=== PATIENT | female | born 1985 | race Caucasian/White ===

== ENCOUNTER → 2017-10-12 09:34 | Outpatient (REF) | payer OTHER, SELFPAY | LOC: LAB 09:34 | PROVIDERS: Visit Provider Nurse Practitioner Obstetrics & Gynecology | DX: Z34.90 Encounter for supervision of normal pregnancy, unspecified, unspecified trimester (principal) | CPT/HCPCS: 86403 ==

== ENCOUNTER 2017-11-07 17:06 | Inpatient (IN) | payer OTHER, SELFPAY ==
[2017-11-07 17:41] VITALS: BP 125/80; PULSE 100; RESP 18; TEMP 36.7; O2SAT 99; BMI 26.1
[2017-11-07 18:34] LABS: Basophils % 0.3 % (0.1-2.0); Eosinophils # 0.2 K/mm3 (0.0-0.4); Eosinophils % 1.4 % (0.1-12.0); Hematocrit 34.5 % (37.0-47.0); Lymphocytes # 2.3 K/mm3 (0.7-4.5); Mean Corpuscular HGB Conc 34.7 g/dL (31.8-35.4); Mean Corpuscular Hemoglobin 32.6 pg (27.0-31.2); Mean Platelet Volume 9.9 fl (7.4-10.4); Monocytes # 0.6 K/mm3 (0.1-1.0); Monocytes % 4.8 % (1.7-9.3); Neutrophils # 8.9 K/mm3 (1.8-7.8); Neutrophils % 74.5 % (37.0-80.0); Platelet Count 239 K/mm3 (142-424); Red Blood Count 3.67 M/mm3 (4.20-5.40); Red Cell Distribution Width 13.4 % (11.5-17.5); White Blood Count 11.9 K/mm3 (4.8-10.8)
[2017-11-08] VITALS (7 sets, daily range): BP systolic 112–121; BP diastolic 72–84; PULSE 59–100; RESP 12–18; TEMP 36.6–37.6; O2SAT 97–100
--- NOTE | 2017-11-08 08:01 | HMH.LABNOT ---
Labor Note - Subjective: Date: 11/08/17 Time: 08:02 regular contraction - Objective: NST:: Reactive Contractions:: every 2-3 minutes Cervical Dilation:: 1 Effacement:: 50% Station: -3 Membranes: intact - Fetus: Monitoring?: Yes monitoring type:: External - Assessment: Labor progressing?: No Patient Problems: All Active Problems (Acute) - Plan: Anesthesia for epidural?: No Continue to labor down?: Yes Plan for ?: No Continue to monitor?: Yes Start pushing?: No Comment:: She is having regular contractions however her cervix is still closed and station -3. The cervix is approximately 50% effaced.
--- NOTE | 2017-11-08 08:03 | HMH.OBAPHP ---
OB - H&P: HPI Antepartum - History of Present Illness Chief complaint: She is term. - History of Present Criteria for establishing EDC:: LMP confirmed by 1st trimester US care: good care Ultrasounds: normal 1st trimester US, normal mid trimester US Obstetrical complications: none Medical complications: none [facility] History Medical History: Denies:: Cancer, Diabetes Mellitus Type 1, Diabetes Mellitus Type 2, MRSA Other Surgeries: Yes: Appendectomy, Other (wisdom teeth) Amputation: No Fractures: No - *Social History Smoking Status: Never smoker Alcohol Intake: never Substance Use Type: denies use Occupational Status: employed Household Members: spouse - Psychiatric History Expresses thoughts of harming self/others: None Suicide Plan Description: No Plan *Family Hx:: No significant family history Para: 0 Meds Home Medications Medication Instructions Recorded Confirmed Type lactobacillus combination no.8 3 3,000 mmu cells PO QDAY cap 10/05/17 11/07/17 History billion cell capsule 1 tab PO QDAY 10/05/17 11/07/17 History vitamin,calcium,myxocmlg-yizw-iyoqe acid tablet ferrous sulfate 325 mg (65 mg 325 mg PO DAILY tab 10/21/17 11/07/17 History iron) tablet Allergies Allergy/AdvReac Type Severity Reaction Status Date / Time No Known Allergies Allergy Verified 10/12/17 13:52 OB - H&P: Exam - Physical Exam Vital signs: Temp Pulse Resp BP Pulse Ox 98.1 F 100 H 18 125/80 99 11/07/17 17:41 11/07/17 17:41 11/07/17 17:41 11/07/17 17:41 11/07/17 17:41 - Constitutional no acute distress, average body habitus OB - Results - Labs Labs: Short CBC 11/07/17 Range/Units 18:25 WBC 11.9 H (4.8-10.8) K/mm3 Hgb 12.0 L (12.2-16.2) g/dL Hct 34.5 L (37.0-47.0) % Plt Count 239 (142-424) K/mm3 OB - A/P Antepartum - Additional Plan Plan: induction (She had Cervidil overnight and is now having regular contractions with oxytocin. Her cervix has remained unchanged. We will plan to continue with the oxytocin.) Planning to breastfeed?: Yes
--- NOTE | 2017-11-08 11:14 | HMH.LABNOT ---
Labor Note - Subjective: Date: 11/08/17 Time: 11:14 regular contraction - Objective: NST:: Reactive Contractions:: every 2-3 minutes Cervical Dilation:: 2 Effacement:: 75% Station: -2 Membranes: articially ruptured - Fetus: Monitoring?: Yes monitoring type:: Internal and External - Assessment: Labor progressing?: Yes Cephalopelvic disproportion?: No Patient Problems: All Active Problems (Acute) - Plan: Anesthesia for epidural?: Yes Continue to labor down?: Yes Plan for ?: No Continue to monitor?: Yes Start pushing?: No Comment:: I ruptured remains and inserted and IUPC. She is 2 cm dilated and 75% effaced. The fluid is clear.
--- NOTE | 2017-11-08 12:24 | P.PN_ITS ---
[facility] Anesthesia Checklist - Structural Data Admitted From: Home Planned Operative Procedure/s: labor epidural Consent for Planned Operative Procedure(s) Verified: Yes Verified Documents: Surgical Consent - Neurological Assessment Level of Consciousness: Awake, Alert Hx Seizures: No - Anesthesia Plan Anesthesia Risk discussed: Yes Anesthesia Plan: Verified ASA Class: II Anesthesia Type: Epidural [facility] Anesthesia HX I have reviewed the patient's past medical history: Yes Medical History: Denies:: Cancer, Diabetes Mellitus Type 1, Diabetes Mellitus Type 2, MRSA Other Surgeries: Yes: Appendectomy, Other (wisdom teeth) Amputation: No Fractures: No *Family Hx:: No significant family history
[2017-11-08 13:11] LABS: Appearance,Urine CLEAR (Clear); Bilirubin,Urine Negative (Negative); Blood, Urine TRACE-I (Negative); Color,Urine YELLOW (Yellow); Glucose,Urine (UA) Negative (Negative); Ketones,Urine Negative (Negative); Leukocyte Esterase,Urine Negative (Negative); Microscopic, Urine URINE MICROSCOPIC (MICROSCOPIC); Nitrate,Urine Negative (Negative); Protein,Urine TRACE (Negative); Specific Gravity, Urine 1.015 (1.005-1.030); Urobilinogen,Urine 0.2 EU/dl (0.2)
[2017-11-08 13:29] LABS: Bacteria,Urine Trace /lpf; RBC,Urine Occasional #/hpf (0-3); WBC,Urine Occasional #/hpf (0-3)
--- NOTE | 2017-11-08 13:33 | HMH.LABNOT ---
Labor Note - Subjective: Date: 11/08/17 Time: 13:33 regular contraction - Objective: NST:: Reactive Contractions:: every 2-3 minutes Cervical Dilation:: 3 Effacement:: 75% Station: -1 Membranes: articially ruptured - Fetus: Monitoring?: Yes monitoring type:: Internal and External - Assessment: Labor progressing?: Yes Cephalopelvic disproportion?: No Patient Problems: All Active Problems (Acute) - Plan: Anesthesia for epidural?: Yes Continue to labor down?: Yes Plan for ?: No Continue to monitor?: Yes Start pushing?: No
--- NOTE | 2017-11-08 15:41 | HMH.LABNOT ---
Labor Note - Subjective: Date: 11/08/17 Time: 15:42 regular contraction - Objective: NST:: Reactive Contractions:: every 2-3 minutes Cervical Dilation:: 3 Effacement:: 75% Station: -2 Membranes: articially ruptured - Fetus: Monitoring?: Yes monitoring type:: Internal and External - Assessment: Labor progressing?: No Cephalopelvic disproportion?: No Patient Problems: All Active Problems (Acute) - Plan: Anesthesia for epidural?: Yes Continue to labor down?: Yes Plan for ?: No Continue to monitor?: Yes Start pushing?: No Comment:: Her cervix is 3 cm, 75% and station -2. She really has not progressed much in the last couple of hours. We will see how she does over the next few hours. If she does not progress beyond 3 cm over the next few hours I suspect she has fetopelvic disproportion and we will plan a section.
[2017-11-08 19:13] LABS: Cord Blood PH 7.35 (7.35-7.45)
--- NOTE | 2017-11-08 19:32 | HMH.OPNOTE ---
Date of procedure: 11/08/17 Pre-op Diagnosis:: Term , pelvic disproportion, uterine atony Post-op diagnosis:: same Procedure performed:: Primary lower segment transverse section, B De La O suture Surgeon:: Elbert Ojeda MD Paraffin Plant Operator(s):: Dr. Boston BLEACHER SULFITE PULP:: Ji Desai Anesthesia: epidural Estimated blood loss (mL): 600 Clinical Note:: She is a 31-year-old 1 para 0 who was 39 weeks gestational age. She was 39 weeks and as result of that we elected to induce her labor. She had Cervidil placed on the evening of November 07, 2017. On the morning of November 08, 2017 she was started on IV oxytocin. Later that morning she had her membranes ruptured and really failed to progress beyond 3 cm. As a result of this would like to perform a primary lower segment transverse section. The risks and benefits of surgery were discussed with the patient and her family prior to surgery. Operative findings:: She delivered a liveborn female child at 6:59 PM in the evening of November 08, 2017. The baby weighed 7 lbs. 9 oz. with Apgars of 9 at 1 minute and 10 at 5 minutes. Her pH was 7.35. The ovaries and tubes appeared normal. Operative note:: She was taken to the operating room where epidural anesthesia was found be adequate. She was prepped and draped in normal sterile fashion in the supine position with a leftward tilt. A Crump catheter was in the bladder. A Pfannenstiel skin incision was made with knife then carried through to the underlying layer of fascia with cautery. The fascia was opened in the midline with cautery and extended laterally using Michael scissors. Cheng clamps were applied to the superior aspect of the fascial incision which was tented up and the underlying rectus muscles dissected off using cautery. The Cheng clamps were then applied to the inferior aspect of the fascial incision which in a similar fashion was tented up and the underlying rectus muscles dissected off using cautery. The rectus muscles were then in the midline, the peritoneum identified, and entered sharply with Metzenbaum scissors. This incision was then extended superiorly and inferiorly with cautery. We had good visualization of the bladder inferiorly. The bladder peritoneum was then opened in the midline and extended laterally using Metzenbaum scissors. A bladder flap was created digitally. The lower blade of the Laly was inserted so as to push the bladder out of the way. Transverse incision was made through the uterine muscle to the amnion. This incision was then extended laterally using fingers traction. The amnion was entered sharply with knife. The infant's head was then delivered atraumatically. This was followed by the anterior shoulder and the rest of the 's body atraumatically. The oropharynx and nasopharynx were bulb suctioned. The infant was then handed off to Dr. Minor who assigned Apgars of 9 at 1 minute and 10 at 5 minutes. We then obtained cord blood as well as cord pH. The pH was 7.35. Using gentle traction on the cord and countertraction on the fundus I was able to easily deliver the placenta intact. It had a normal three-vessel cord. The uterus was then cleared of clots and debris and exteriorized from the abdominal cavity. The uterine incision was then closed using running 0 Vicryl suture in a locked fashion. A second layer of the same suture was used to imbricate the first layer. The bladder peritoneum was then closed using running 2-0 Vicryl suture in a locked fashion. The uterus was still quite boggy so we elected to place a B De La O suture. I used #1 Vicryl suture starting anteriorly with a large bite and going over the top of the uterus posteriorly and taking 2 large bites. I then brought the needle back anteriorly and took another large bite of the uterine muscle anteriorly. The suture was then cinched down and tied. After assuring hemostasis I then cleaned the gutters and cul-de-sac of clots
--- NOTE | 2017-11-08 19:36 | P.OP_ITS ---
Date of procedure: 11/08/17 Pre-op Diagnosis:: Term , pelvic disproportion, uterine atony Post-op diagnosis:: same Procedure performed:: Primary lower segment transverse section, B De La O suture Surgeon:: Elbert Ojeda MD Application Chemist(s):: Dr. Boston FUNNEL SETTER:: Ji Desai Anesthesia: epidural Estimated blood loss (mL): 600 Clinical Note:: She is a 31-year-old 1 para 0 who was 39 weeks gestational age. She was 39 weeks and as result of that we elected to induce her labor. She had Cervidil placed on the evening of November 07, 2017. On the morning of November 08, 2017 she was started on IV oxytocin. Later that morning she had her membranes ruptured and really failed to progress beyond 3 cm. As a result of this would like to perform a primary lower segment transverse section. The risks and benefits of surgery were discussed with the patient and her family prior to surgery. Operative findings:: She delivered a liveborn female child at 6:59 PM in the evening of November 08, 2017. The baby weighed 7 lbs. 9 oz. with Apgars of 9 at 1 minute and 10 at 5 minutes. Her pH was 7.35. The ovaries and tubes appeared normal. Operative note:: She was taken to the operating room where epidural anesthesia was found be adequate. She was prepped and draped in normal sterile fashion in the supine position with a leftward tilt. A Crump catheter was in the bladder. A Pfannenstiel skin incision was made with knife then carried through to the underlying layer of fascia with cautery. The fascia was opened in the midline with cautery and extended laterally using Michael scissors. Cheng clamps were applied to the superior aspect of the fascial incision which was tented up and the underlying rectus muscles dissected off using cautery. The Cheng clamps were then applied to the inferior aspect of the fascial incision which in a similar fashion was tented up and the underlying rectus muscles dissected off using cautery. The rectus muscles were then in the midline, the peritoneum identified, and entered sharply with Metzenbaum scissors. This incision was then extended superiorly and inferiorly with cautery. We had good visualization of the bladder inferiorly. The bladder peritoneum was then opened in the midline and extended laterally using Metzenbaum scissors. A bladder flap was created digitally. The lower blade of the Laly was inserted so as to push the bladder out of the way. Transverse incision was made through the uterine muscle to the amnion. This incision was then extended laterally using fingers traction. The amnion was entered sharply with knife. The infant's head was then delivered atraumatically. This was followed by the anterior shoulder and the rest of the 's body atraumatically. The oropharynx and nasopharynx were bulb suctioned. The infant was then handed off to Dr. Minor who assigned Apgars of 9 at 1 minute and 10 at 5 minutes. We then obtained cord blood as well as cord pH. The pH was 7.35. Using gentle traction on the cord and countertraction on the fundus I was able to easily deliver the placenta intact. It had a normal three-vessel cord. The uterus was then cleared of clots and debris and exteriorized from the abdominal cavity. The uterine incision was then closed using running 0 Vicryl suture in a locked fashion. A second layer of the same suture was used to imbricate the first layer. The bladder peritoneum was then closed using running 2-0 Vicryl suture in a locked fashion. The uterus was still quite boggy so we elected to place a B De La O suture. I used #1 Vicryl suture starting anteriorly with a large bite and going over the top of t
--- NOTE | 2017-11-08 19:37 | HMH.ANESI ---
[facility] Anesthesia Record Part I Intake, IV Amount: 1,400 Estimated blood loss (mL): 600 Urine output (mL): 250 Blood Pressure: 117/84 SaO2: 97 Pulse Rate: 100 Respiratory Rate: 12 Temperature: 99.6 F Patient is:: Awake, Stable Stable to PACU at:: 19:35
--- NOTE | 2017-11-08 19:39 | P.PN_ITS ---
[facility] Anesthesia Record Part II Discharge Time: 20:05 Destination: Obstetric PACU nurse assessment reviewed?: Yes Patient Condition:: Good Anesthesia Complications:: None
[2017-11-09 07:19] LABS: Basophils % 0.3 % (0.1-2.0); Eosinophils # 0.1 K/mm3 (0.0-0.4); Eosinophils % 0.3 % (0.1-12.0); Hematocrit 30.7 % (37.0-47.0); Hemoglobin 10.1 g/dL (12.2-16.2); Lymphocytes # 1.8 K/mm3 (0.7-4.5); Lymphocytes % 12.1 K/mm3 (10-50); Mean Corpuscular Hemoglobin 32.2 pg (27.0-31.2); Mean Corpuscular Volume 97.5 fl (81-99); Mean Platelet Volume 10.4 fl (7.4-10.4); Monocytes # 0.6 K/mm3 (0.1-1.0); Monocytes % 4.2 % (1.7-9.3); Platelet Count 189 K/mm3 (142-424); Red Blood Count 3.15 M/mm3 (4.20-5.40); Red Cell Distribution Width 13.8 % (11.5-17.5); White Blood Count 14.4 K/mm3 (4.8-10.8)
[2017-11-09 07:30] VITALS: BP 115/63; PULSE 84; RESP 16; TEMP 36.9; O2SAT 99
[2017-11-09 07:38] VITALS: RESP 16
--- NOTE | 2017-11-09 08:38 | P.PN_ITS ---
Internal Medicine - PN: Subj *Date: 11/09/17 *Time: 08:37 Interval history: She is doing well this morning she is eating and drinking and ambulating. She is breast-feeding. Her lochia is normal. Her pain is reasonably well controlled. Exam Vital signs and Labs for Last 24 Hours: Temp Pulse Resp BP Pulse Ox 98.4 F 84 16 115/63 99 11/09/17 07:30 11/09/17 07:30 11/09/17 07:38 11/09/17 07:30 11/09/17 07:30 Laboratory Results - last 24 hr 11/07/17 18:25: Antibody Identification Anti-D 11/08/17 12:39: Urine Color Yellow, Urine Appearance Clear, Urine pH 8.0, Ur Specific [place] 1.015, Urine Protein Trace, Urine Glucose (UA) Negative, Urine Ketones Negative, Urine Blood Trace-i, Urine Nitrate Negative, Urine Bilirubin Negative, Urine Urobilinogen 0.2, Ur Leukocyte Esterase Negative, Urine RBC Occasional, Urine WBC Occasional, Ur Squamous Epith Cells None, Urine Bacteria Trace 11/08/17 17:09: Cord ABG pH 7.35 11/09/17 06:30: WBC 14.4 H, RBC 3.15 L, Hgb 10.1 L, Hct 30.7 L, MCV 97.5, MCH 32.2 H, MCHC 33.0, RDW 13.8, Plt Count 189, MPV 10.4, Neut % (Auto) 83.0 H, Lymph % (Auto) 12.1, [place] % (Auto) 4.2, Eos % (Auto) 0.3, Baso % (Auto) 0.3, Neut # (Auto) 12.0 H, Lymph # (Auto) 1.8, [place] # (Auto) 0.6, Eos # (Auto) 0.1, Baso # (Auto) 0.0 I & O for Last 24 hours: Intake & Output 11/06/17 11/07/17 11/08/17 11/09/17 11:59 11:59 11:59 11:59 Intake Total 1400 / 1400 Balance 1400 / 1400 Weight 152 lb - Constitutional no acute distress Assessment and Plan - Assessment and plan all Dx Assessment and Plan for all problems:: She is doing well this morning. She is eating and drinking and ambulating. She is breast-feeding. We will plan to send her home in 48 hours.
--- NOTE | 2017-11-09 10:30 | P.CONPHA_ITS ---
[facility] Pharmacy VTE Monitoring - Patient Demographics Admission date: 11/07/17 Report Date: 11/09/17 Time: 10:30 Allergies/Adverse Reactions: Patient Allergies No Known Allergies Allergy (Verified 10/12/17 13:52) Height: 1.63 m Weight: 68.946 kg - VTE Risk Labs: VTE Related Lab Results Hgb 10.1 g/dL (12.2-16.2) L 11/09/17 06:30 Hct 30.7 % (37.0-47.0) L 11/09/17 06:30 Plt Count 189 K/mm3 (142-424) 11/09/17 06:30 - Prophylaxis VTE Prophylaxis Ordered?: Yes Types of VTE Prophylaxis: IPCS Thigh High Location of Applied Device: Bilateral Lower Extremeties
[2017-11-09 11:45] VITALS: BP 110/69; PULSE 76; RESP 18; TEMP 36.6
--- NOTE | 2017-11-10 10:27 | HMH.ACPN2 ---
Internal Medicine - PN: Subj *Date: 11/10/17 *Time: 10:27 Interval history: She is doing very well this morning. She is eating and drinking and ambulating. She is breast-feeding. Her lochia is normal. Her incision is clean and dry. Does complain of some swelling in her feet. It is just 1+ edema. Exam Vital signs and Labs for Last 24 Hours: Temp Pulse Resp BP Pulse Ox 97.9 F 76 18 110/69 99 11/09/17 11:45 11/09/17 11:45 11/09/17 11:45 11/09/17 11:45 11/09/17 07:30 I & O for Last 24 hours: Intake & Output 11/07/17 11/08/17 11/09/17 11/10/17 11:59 11:59 11:59 11:59 Intake Total 1400 / 1400 Balance 1400 / 1400 Weight 152 lb 152 lb - Constitutional no acute distress - *Routine Abdominal Exam Present: soft (Her incision is clean and dry) Assessment and Plan - Assessment and plan all Dx Assessment and Plan for all problems:: She is doing very well this morning. We will plan to send her home tomorrow.
[2017-11-11 07:38] VITALS: RESP 18
[2017-11-11 08:00] VITALS: BP 116/57; PULSE 96; RESP 18; TEMP 36.4
--- NOTE | 2017-11-11 08:14 | HMH.DCSUM ---
General - General Admission date: 11/07/17 Discharge date: 11/11/17 HPI HPI: She is a 31-year-old 1 now para 1 who was 39 weeks gestational age. We brought her in for induction of labor. She had Cervidil placed on the evening of November 07, 2016. She was subsequently observed overnight on the morning of 08 November 2016 she had her membranes ruptured and was started on IV oxytocin. She really failed to progress beyond 3 cm. As result of that pelvic disproportion was diagnosed and she was taken for a Rae lower segment transverse section. She delivered a liveborn female child at 6:53 PM in the evening of November 08, 2017. She did require a B De La O suture. She has done well and has remained afebrile throughout her hospitalization. She is eating and drinking and ambulating. She is breast-feeding. She has O Rh- blood and her baby also had Rh- blood so she did not receive RhoGam. She is rubella immune and was group A streptococcus negative. She is discharged home to follow-up with me in approximately 2 weeks time. She will continue with her vitamins and iron. She is given a prescription for Percocet 5/325, 30 tablets. She will also take ibuprofen as needed. Objective Vital signs: Temp Pulse Resp BP Pulse Ox 97.9 F 76 18 110/69 99 11/09/17 11:45 11/09/17 11:45 11/11/17 07:38 11/09/17 11:45 11/09/17 07:30 no acute distress - *Routine Abdominal Exam Present: soft Comments: Her incision is clean and dry. Discharge Plan - Patient Discharge Instructions ACTIVITY: No heavy lifting DIET: continue same diet - Follow up Plan Disposition: Home, Self-Skilled Nursing Medications: Home Medications Medication Instructions Recorded Confirmed Type lactobacillus combination no.8 3 1 cap PO DAILY cap 10/05/17 11/08/17 History billion cell capsule 1 tab PO DAILY 10/05/17 11/08/17 History vitamin,calcium,itbebnmj-ighw-gzysm acid tablet ferrous sulfate 325 mg (65 mg 325 mg PO DAILY tab 10/21/17 11/07/17 History iron) tablet Prescriptions/Medication Reconciliation: Continue vitamin,calcium,rktglgwl-rzus-yafck acid tablet 1 tab PO DAILY lactobacillus combination no.8 3 billion cell capsule 1 cap PO DAILY cap ferrous sulfate 325 mg (65 mg iron) tablet 325 mg PO DAILY tab
--- NOTE | 2017-11-11 08:17 | P.DS_ITS ---
General - General Admission date: 11/07/17 Discharge date: 11/11/17 HPI HPI: She is a 31-year-old 1 now para 1 who was 39 weeks gestational age. We brought her in for induction of labor. She had Cervidil placed on the evening of November 07, 2016. She was subsequently observed overnight on the morning of 08 November 2016 she had her membranes ruptured and was started on IV oxytocin. She really failed to progress beyond 3 cm. As result of that pelvic disproportion was diagnosed and she was taken for a Rae lower segment transverse section. She delivered a liveborn female child at 6:53 PM in the evening of November 08, 2017. She did require a B De La O suture. She has done well and has remained afebrile throughout her hospitalization. She is eating and drinking and ambulating. She is breast-feeding. She has O Rh- blood and her baby also had Rh- blood so she did not receive RhoGam. She is rubella immune and was group A streptococcus negative. She is discharged home to follow-up with me in approximately 2 weeks time. She will continue with her vitamins and iron. She is given a prescription for Percocet 5/325, 30 tablets. She will also take ibuprofen as needed. Objective Vital signs: Temp Pulse Resp BP Pulse Ox 97.9 F 76 18 110/69 99 11/09/17 11:45 11/09/17 11:45 11/11/17 07:38 11/09/17 11:45 11/09/17 07:30 no acute distress - *Routine Abdominal Exam Present: soft Comments: Her incision is clean and dry. Discharge Plan - Patient Discharge Instructions ACTIVITY: No heavy lifting DIET: continue same diet - Follow up Plan Disposition: Home, Self-Residential Medications: Home Medications Medication Instructions Recorded Confirmed Type lactobacillus combination no.8 3 1 cap PO DAILY cap 10/05/17 11/08/17 History billion cell capsule 1 tab PO DAILY 10/05/17 11/08/17 History vitamin,calcium,teojsiho-zsme-axqxm acid tablet ferrous sulfate 325 mg (65 mg 325 mg PO DAILY tab 10/21/17 11/07/17 History iron) tablet Prescriptions/Medication Reconciliation: Continue vitamin,calcium,tpekvqcm-rywc-xutbq acid tablet 1 tab PO DAILY lactobacillus combination no.8 3 billion cell capsule 1 cap PO DAILY cap ferrous sulfate 325 mg (65 mg iron) tablet 325 mg PO DAILY tab
== END 2017-11-11 11:00 | disposition home or self-care (01) | DRG 766 ==
PROVIDERS: Admitting Provider Obstetrics & Gynecology; Visit Provider Nurse Practitioner Obstetrics & Gynecology
PROC: 10D00Z1 Extraction of Products of Conception, Low, Open Approach (ICD-10-PCS; CPT 59514; principal; 2017-11-08 18:30)
DX: O65.4 Obstructed labor due to fetopelvic disproportion, unspecified (principal); O62.2 Other uterine inertia; Z37.0 Single live birth; Z3A.39 39 weeks gestation of pregnancy
CPT/HCPCS: 59514; 36415; 59025; 81001; 82800; 85025; 86850; 86870; 94761; C1758; J0595

== ENCOUNTER 2020-05-22 10:46 | Inpatient (IN) | payer OTHER, SELFPAY ==
[2020-05-22 09:33] VITALS: BMI 24.3
[2020-05-22 09:43] LABS: Microscopic, Urine URINE MICROSCOPIC (MICROSCOPIC)
[2020-05-22 09:51] LABS: Appearance,Urine SL CLOUDY (Clear); Bilirubin,Urine Negative (Negative); Blood, Urine Negative (Negative); Color,Urine YELLOW (Yellow); Glucose,Urine (UA) Negative (Negative); Ketones,Urine Negative (Negative); Leukocyte Esterase,Urine Negative (Negative); Nitrate,Urine Negative (Negative); Protein,Urine Negative (Negative); Urobilinogen,Urine 0.2 EU/dl (0.2)
[2020-05-22 09:58] LABS: Fetal Membrane Rupture (Rapid) Positive (Negative)
[2020-05-22 10:02] LABS: Amphetamine/Metha Screen,Urine Negative ng/ml (<1000); Benzodiazepines Screen,Urine Negative ng/ml (<200)
[2020-05-22 10:03] LABS: Barbiturates Screen,Urine Negative ng/ml (<200)
[2020-05-22 10:04] LABS: Amorphous Sediment,Urine 2+ /lpf; Bacteria,Urine 1+ /lpf; Cannabinoid Screen,Urine Negative ng/ml (<50); Cocaine Screen,Urine Negative ng/ml (<300); Transitional Epi Cells,Urine OCC #/lpf (0-3)
[2020-05-22 10:05] LABS: Methadone Screen,Urine Negative ng/ml (<300); Opiate Screen,Urine Negative ng/ml (<300)
[2020-05-22 10:06] LABS: Phencyclidine Screen,Urine Negative ng/ml (<25)
[2020-05-22 10:11] VITALS: BP 119/78; PULSE 100; RESP 20; TEMP 36.8; O2SAT 99
[2020-05-22 10:35] LABS: Basophils % 0.3 % (0.1-2.0); Eosinophils # 0.1 K/mm3 (0.0-0.4); Eosinophils % 0.8 % (0.1-12.0); Hematocrit 33.9 % (37.0-47.0); Hemoglobin 11.9 g/dL (12.2-16.2); Lymphocytes # 1.8 K/mm3 (0.7-4.5); Lymphocytes % 20.3 % (10-50); Mean Corpuscular HGB Conc 35.1 g/dL (31.8-35.4); Mean Corpuscular Hemoglobin 33.1 pg (27.0-31.2); Mean Corpuscular Volume 94.3 fl (81-99); Mean Platelet Volume 9.9 fl (7.4-10.4); Monocytes # 0.3 K/mm3 (0.1-1.0); Monocytes % 3.8 % (1.7-9.3); Neutrophils # 6.6 K/mm3 (1.8-7.8); Neutrophils % 74.9 % (37.0-80.0); Platelet Count 237 K/mm3 (142-424); Red Cell Distribution Width 14.5 % (11.5-17.5); White Blood Count 8.8 K/mm3 (4.8-10.8)
[2020-05-22 10:37] LABS: Chloride 107 mmol/L (98-107); Potassium 3.8 mmoL/L (3.5-5.1); Sodium 136 mmol/L (136-145)
[2020-05-22 10:40] LABS: Anion Gap 10.8 mEq/L (5-15); Blood Urea Nitrogen 4 mg/dl (7-17); Calcium 8.7 mg/dl (8.4-10.2); Carbon Dioxide 22 mmol/L (22.0-30.0); Creatinine Clearance Estimated 165 mL/min (50-200); Estimated Glomerular Filt Rate 142 ml/min (>60); GFR (African American) 172 ML/MIN (>60); Glucose 78 mg/dl (74-100)
[2020-05-22 11:03] LABS: Coronavirus 19 IgG Antibody Positive (Negative); Coronavirus 19 IgM Antibody Negative (Negative)
--- NOTE | 2020-05-22 14:01 | HMH.OBAPHP ---
OB - H&P: HPI Antepartum - History of Present Illness Chief complaint: Spontaneous rupture of membranes. Previous section Comments: She is a 34-year-old 2 para 1 at 38+ weeks gestational age. She has had a previous section and has had her care in [place] where her is stationed in the . She returned here for delivery last week and this morning spontaneously ruptured her membranes. The AmniSure is positive. She is an otherwise healthy lady. - History of Present Criteria for establishing EDC:: LMP confirmed by 1st trimester US care: good care Ultrasounds: normal 1st trimester US, normal mid trimester US Obstetrical complications: previous Medical complications: none - Labs RPR/VDRL: nonreactive GBS status: negative HBsAG: negative HMH History I have reviewed the patient's past medical history: Yes Medical History: Denies:: Cancer, Diabetes Mellitus Type 1, Diabetes Mellitus Type 2, MRSA, Seizures *Have you ever received a pneumonia vaccine?: No *Have you received a flu vaccine this season?: No Other Surgeries: Yes: Appendectomy, , Other Amputation: No Fractures: No - *Social History Smoking Status: Never smoker Alcohol Intake: never Substance Use Type: denies use *Occupational Status:: unemployed Household Members: spouse *Travel in the last 8 weeks: Inside the [facility] Family Hx:: No significant family history Para: 1 Review of Systems - Review of Systems Review of systems:: pertinent systems reviewed and negative unless documented below Meds Home Medications Medication Instructions Recorded Confirmed Type lactobacillus combination no.8 3 3,000 mmu cells PO DAILY 05/15/20 05/21/20 History billion cell capsule magnesium citrate 150 ml PO DAILY 05/15/20 05/21/20 History prenat.vits,shakir,[id number] 1 tab PO DAILY 05/15/20 05/21/20 History Allergies Allergy/AdvReac Type Severity Reaction Status Date / Time No Known Allergies Allergy Verified 05/21/20 08:38 OB - H&P: Exam - Physical Exam Vital signs: Temp Pulse Resp BP Pulse Ox 98.3 F 100 H 20 119/78 99 05/22/20 10:11 05/22/20 10:11 05/22/20 10:11 05/22/20 10:11 05/22/20 10:11 - Constitutional no acute distress - Routine HEENT Exam Head: Present: normocephalic Eye: Present: EOMI, PERRL ENT: Present: mucous membranes moist - Routine Neck Exam Present: supple, full ROM - Routine Respiratory Exam Absent: accessory muscle use (good air entry bilaterally), respiratory distress, wheezes, crackles - Routine Cardiovascular Exam Present: RRR. Absent: murmur - Routine Abdominal Exam Present: soft, normoactive bowel sounds. Absent: tenderness, distended, guarding - Routine Rectal Exam Patient deferred: visual exam, digital exam - Routine Exam Patient deferred: external exam, groin exam, perineal exam - Routine Extremities Exam Present: full ROM. Absent: cyanosis, edema - Routine Skin Exam Present: intact. Absent: cyanosis - Routine Neurological Exam Present: alert, oriented X3 - Routine Psychiatric Exam Present: normal affect OB - Results - Labs Labs: Short CBC 05/22/20 Range/Units 09:50 WBC 8.8 (4.8-10.8) K/mm3 Hgb 11.9 L (12.2-16.2) g/dL Hct 33.9 L (37.0-47.0) % Plt Count 237 (142-424) K/mm3 BMP 05/22/20 09:50 Sodium 136 Potassium 3.8 Chloride 107 Carbon Dioxide 22 BUN 4 L Creatinine 0.50 L Glucose 78 Calcium 8.7 Urine 05/22/20 Range/Units 09:15 Urine Color Yellow (Yellow) Urine Appearance Sl cloudy (Clear) Urine pH 8.0 (5.0-8.5) Ur Specific [place] 1.020 (1.005-1.030) Urine Protein Negative (Negative) Urine Glucose (UA) Negative (Negative) OB - A/P Antepartum (1) Previous section Current visit: Yes Status: Acute (2) Premature rupture of membranes Current visit: Yes S
[2020-05-22 17:50] VITALS: BP 128/74; PULSE 67; RESP 12; TEMP 36.2; O2SAT 100
--- NOTE | 2020-05-22 17:50 | HMH.OPNOTE ---
Date of procedure: 05/22/20 Pre-op Diagnosis:: Term , previous section, spontaneous rupture of membranes Post-op Diagnosis:: Term , previous section, spontaneous rupture of membranes Procedure performed:: Repeat lower segment transverse section Surgeon:: Elbert Ojeda MD Dental Laboratory Worker(s):: Dr. Garcia FURNITURE FABRICATOR:: Ji Desai Anesthesia: spinal Estimated blood loss (mL): 600 Clinical Note:: She is a 34-year-old 2 para 1 whose had a previous section. She was 38+ weeks gestational age and ruptured her membranes this morning. As result of that we offered her repeat lower segment transverse section. Operative findings:: She delivered a liveborn female child at 5:17 PM in the evening of May 22, 2020. The baby weighed 7 pounds 0 ounces and had Apgars of 10 at 1 minute and 10 at 5 minutes. pH was 7.44. Ovaries and tubes appeared normal. There is a small adhesion of omentum to the fundus of the uterus. Operative note:: She was taken to the operating room where spinal anesthesia was found be adequate. She was prepped and draped in normal sterile fashion in the supine position with a leftward tilt. A Crump catheter was in the bladder. A Pfannenstiel skin incision was made with knife then carried through to the underlying layer of fascia with cautery. The fascia was opened in the midline with cautery and extended laterally using Michael scissors. [place] clamps were applied to the superior aspect of the fascial incision which was tented up and the underlying rectus muscles dissected off using cautery. The Cheng clamps were then applied to the inferior aspect of the fascial incision which in a similar fashion was tented up and the underlying rectus muscles dissected off using cautery. The rectus muscles were then in the midline, the peritoneum identified, and entered sharply with Metzenbaum scissors. This incision was then extended superiorly and inferiorly with cautery. We had good visualization of the bladder inferiorly. The bladder peritoneum was then opened in the midline and extended laterally using Metzenbaum scissors. A bladder flap was created digitally. Transverse incision was made through the uterine muscle to the amnion. This incision was then extended laterally using fingers traction. The amnion was entered sharply with knife. There was clear amniotic fluid. The infant's head was then delivered atraumatically. This was followed by the anterior shoulder and the rest of the 's body atraumatically. The oropharynx and nasopharynx were bulb suctioned. We allowed the cord to continue to pulsate for approximately 1 minute. The cord was then doubly clamped and cut. The was then handed off to Dr. Minor who assigned Apgars of 10 at 1 minute and 10 at 5 minutes. We then obtained cord blood as well as cord pH. The pH was 7.35. Using gentle traction on the cord and countertraction on the fundus I was able to easily deliver the placenta intact. It had a normal three-vessel cord. The uterus was then cleared of clots and debris . The uterine incision was then closed using running 0 Vicryl suture in a locked fashion. A second layer of the same suture was used to imbricate the first layer. The bladder peritoneum was then closed using running 2-0 Vicryl suture in a locked fashion. The gutters and cul-de-sac were then cleared of clots and debris . Once again hemostasis was assured. The uterus was then returned to the abdominal cavity. There was adhesion of omentum to the fundus of the uterus and this was taken down with cautery. Hemostasis was assured. The peritoneum was grasped with Magui clamps and closed using running 2-0 Vicryl suture. The rectus muscles were then reapproximated using running 0 Vicryl suture. The fascia was closed using running #1 Vicryl suture. The subcutaneous tissues were then irrigated with warm water followed by closure Darby's fascia using running
--- NOTE | 2020-05-22 17:55 | HMH.ANESCL ---
[facility] Anesthesia Checklist - Structural Data Admitted From: Inpatient Planned Operative Procedure/s: c/section Consent for Planned Operative Procedure(s) Verified: Yes - Airway Assessment C-Spine Mobility Assessed: Yes TMJ Mobility Assessed: Yes Dentition: Good Dentition - Neurological Assessment Level of Consciousness: Awake, Alert, Appropriate - Anesthesia Plan Anesthesia Risk discussed: Yes Anesthesia Plan: Verified ASA Class: II Anesthesia Type: Spinal [facility] History I have reviewed the patient's past medical history: Yes Medical History: Denies:: Cancer, Diabetes Mellitus Type 1, Diabetes Mellitus Type 2, MRSA, Seizures *Have you ever received a pneumonia vaccine?: No *Have you received a flu vaccine this season?: No Anesthesia experience/problems:: none Other Surgeries: Yes: Appendectomy, , Other Amputation: No Fractures: No - *Social History Smoking Status: Never smoker Alcohol Intake: never Substance Use Type: denies use *Occupational Status:: unemployed Household Members: spouse *Travel in the last 8 weeks: Inside the [facility] Family Hx:: No significant family history Para: 1
--- NOTE | 2020-05-22 17:55 | HMH.ANESI ---
[facility] Anesthesia Record Part I Intake, IV Amount: 1,500 Estimated blood loss (mL): 600 Urine output (mL): 250 Blood Pressure: 128/74 SaO2: 100 Pulse Rate: 67 Respiratory Rate: 12 Temperature: 97.6 F Patient is:: Awake, Stable Stable to PACU at:: 17:50
[2020-05-22 17:57] VITALS: BP 128/74; PULSE 67; RESP 12; TEMP 36.4; O2SAT 100
[2020-05-22 18:00] VITALS: BP 114/56; PULSE 66; RESP 16; O2SAT 100
[2020-05-22 18:10] VITALS: BP 106/45; PULSE 61; RESP 16; O2SAT 100
[2020-05-22 18:20] VITALS: BP 101/65; PULSE 72; RESP 16; O2SAT 100
[2020-05-23 06:20] LABS: Hematocrit 32.4 % (37.0-47.0); Hemoglobin 10.8 g/dL (12.2-16.2)
[2020-05-23 08:02] VITALS: BP 102/51; PULSE 76; RESP 18; TEMP 36.7; O2SAT 97
--- NOTE | 2020-05-23 09:21 | HMH.ACPN2 ---
Internal Medicine - PN: Subj *Date: 05/23/20 *Time: 09:21 Interval history: She is doing very well this morning. She is eating and drinking and ambulating. She is breast-feeding. Her lochia is normal. Her pain is well controlled. Exam Vital signs and Labs for Last 24 Hours: Temp Pulse Resp BP Pulse Ox 98.0 F 76 18 102/51 L 97 05/23/20 08:02 05/23/20 08:02 05/23/20 08:02 05/23/20 08:02 05/23/20 08:02 Laboratory Results - last 24 hr 05/22/20 09:15: Urine Color Yellow, Urine Appearance Sl cloudy, Urine pH 8.0, Ur Specific [place] 1.020, Urine Protein Negative, Urine Glucose (UA) Negative, Urine Ketones Negative, Urine Blood Negative, Urine Nitrate Negative, Urine Bilirubin Negative, Urine Urobilinogen 0.2, Ur Leukocyte Esterase Negative, Urine RBC 5-10, Urine WBC 5-10, Ur Squamous Epith Cells 5-10, Ur Transition Epith Cell Occ, Amorphous Sediment 2+, Urine Bacteria 1+ 05/22/20 09:15: Membrane Rupture Positive A 05/22/20 09:15: Urine Opiates Screen Negative, Urine Methadone Screen Negative, Ur Barbituates Screen Negative, Ur Phencyclidine Scrn Negative, Ur Amphetamines Screen Negative, U Benzodiazepines Scrn Negative, Urine Cocaine Screen Negative, U Marijuana (THC) Screen Negative 05/22/20 09:50: WBC 8.8, RBC 3.60 L, Hgb 11.9 L, Hct 33.9 L, MCV 94.3, MCH 33.1 H, MCHC 35.1, RDW 14.5, Plt Count 237, MPV 9.9, Neut % (Auto) 74.9, Lymph % (Auto) 20.3, Stokes % (Auto) 3.8, Eos % (Auto) 0.8, Baso % (Auto) 0.3, Neut # (Auto) 6.6, Lymph # (Auto) 1.8, Stokes # (Auto) 0.3, Eos # (Auto) 0.1, Baso # (Auto) 0.0 05/22/20 09:50: Sodium 136, Potassium 3.8, Chloride 107, Carbon Dioxide 22, Anion Gap 10.8, BUN 4 L, Creatinine 0.50 L, Estimated Creat Clear 165, Estimated GFR 142, Est GFR ( Amer) 172, Glucose 78, Calcium 8.7 05/22/20 09:50: Blood Type O Negative, Antibody Screen Positive 05/22/20 09:50: SARS-CoV-2 IgG Ab (Rapid) Positive A, SARS-CoV-2 IgM Ab (Rapid) Negative 05/22/20 09:50: Antibody Identification Anti-D 05/22/20 17:26: Cord ABG pH 05/23/20 05:55: Hgb 10.8 L, Hct 32.4 L 05/23/20 05:55: Blood Type O Negative, Antibody Screen Negative, Screen Negative, Baby's Rh Status Positive I & O for Last 24 hours: Intake & Output 05/20/20 05/21/20 05/22/20 05/23/20 11:59 11:59 11:59 11:59 Intake Total 1500 / 1500 Balance 1500 / 1500 Weight 144 lb - Constitutional no acute distress - *Routine HEENT Exam Head: Present: normocephalic Eye: Present: EOMI, PERRL ENT: Present: mucous membranes moist Assessment and Plan (1) Previous section Current visit: Yes Status: Acute Category: Surgical Code(s): Z98.891 - History of uterine scar from previous surgery (2) Premature rupture of membranes Current visit: Yes Status: Acute Category: Medical Code(s): O42.90 - Premature rupture of membranes, unspecified as to length of time between rupture and onset of labor, unspecified weeks of gestation (3) Delivery by section at 37-39 weeks of gestation due to labor Current visit: Yes Status: Acute Category: Medical Code(s): O75.82 - Onset (spontaneous) of labor after 37 completed weeks of gestation but before 39 completed weeks gestation, with delivery by (planned) section - Assessment and plan all Dx Assessment and Plan for all problems:: She is doing very well this morning. She would like to go home tomorrow. We will see her later on this afternoon. We will plan to send her home tomorrow.
[2020-05-23 11:44] VITALS: BP 110/63; PULSE 83; RESP 18; TEMP 36.9; O2SAT 98
[2020-05-23 16:45] VITALS: BP 117/58; PULSE 78; RESP 18; TEMP 36.7; O2SAT 99
--- NOTE | 2020-05-24 07:29 | HMH.PHAVTE ---
[facility] Pharmacy VTE Monitoring - Patient Demographics Admission date: 05/22/20 Report Date: 05/24/20 Time: 07:29 Allergies/Adverse Reactions: Patient Allergies No Known Allergies Allergy (Verified 05/21/20 08:38) Height: 46.94 m Weight: 65.317 kg Patient Problems: Current Active Problems Previous section (Acute) Premature rupture of membranes (Acute) Delivery by section at 37-39 weeks of gestation due to labor (Acute) - VTE Risk Labs: VTE Related Lab Results Hgb 10.8 g/dL (12.2-16.2) L 05/23/20 05:55 Hct 32.4 % (37.0-47.0) L 05/23/20 05:55 Plt Count 237 K/mm3 (142-424) 05/22/20 09:50 BUN 4 mg/dl (7-17) L 05/22/20 09:50 Creatinine 0.50 mg/dl (0.52-1.04) L 05/22/20 09:50 Estimated Creat Clear 165 mL/min (50-200) 05/22/20 09:50 - Prophylaxis VTE Prophylaxis Ordered?: Yes Types of VTE Prophylaxis: IPCS Thigh High Location of Applied Device: Bilateral Lower Extremeties
[2020-05-24 08:15] VITALS: BP 100/58; PULSE 85; RESP 16; TEMP 36.4; O2SAT 99
--- NOTE | 2020-05-24 09:27 | HMH.OBDCSM ---
General - General Admission date:: 05/22/20 Discharge date: 05/24/20 HPI - History of Present Illness History of present illness: She is a 34-year-old 2 now para 2 who was 38 weeks gestational age. She came in with ruptured membranes and has had a previous section. As result of that we elected perform a repeat lower segment transverse section. Hospital Course Hospital Course: On May 22, 2020 she underwent a repeat lower segment transverse section and delivered a liveborn female child at 5:17 PM. The baby weighed 7 pounds 0 ounces and was 18 inches long. She had Apgars of 10 at 1 minute and 10 at 5 minutes. She has done well post operatively and has remained afebrile throughout her hospitalization. She is eating and drinking and ambulating. She is breast-feeding. Her lochia is normal. She has O Rh- blood and she has received RhoGam. She is rubella immune and was group B streptococcus negative. Her sap treasury consultant is Dr. Minor. She is discharged home to follow-up with me in approximately 2 weeks time. She will continue with her vitamins and iron. She was given a prescription for Toradol 10 mg to take every 6 hours as needed for pain number 20 tablets. She was given a prescription for Percocet 5/325 number 30 tablets. She was given the usual instructions with respect to limiting her activity, driving and sexual activity. Her condition on discharge is stable and improved. Rhogam Administration: Given Objective Vital signs: Temp Pulse Resp BP Pulse Ox 97.5 F L 85 16 100/58 L 99 05/24/20 08:15 05/24/20 08:15 05/24/20 08:15 05/24/20 08:15 05/24/20 08:15 no acute distress - *Routine HEENT Exam Head: Present: normocephalic Eye: Present: EOMI, PERRL ENT: Present: mucous membranes moist Results Labs on day of discharge: Labs from last 24 hours 05/23/20 09:06 Rhogam Infusion Rhogam release DS: Diagnosis - Discharge Diagnosis (1) Previous section Status: Acute (2) Premature rupture of membranes Status: Acute (3) Delivery by section at 37-39 weeks of gestation due to labor Status: Acute Discharge Plan - Patient Discharge Instructions ACTIVITY: No heavy lifting DIET: continue same diet - Follow up Plan Disposition: Home, Self-Long Term Medications: Home Medications Medication Instructions Recorded Confirmed Type lactobacillus combination no.8 3 1 cap PO DAILY 05/15/20 05/24/20 History billion cell capsule prenat.vits,shakir,[id number] 1 tab PO DAILY 05/15/20 05/23/20 History Ketorolac Tromethamine [Toradol 10 mg PO Q6H 5 Days #20 tab 05/24/20 Rx 10mg tablet] Oxycodone HCl/Acetaminophen 1 - 2 tab PO Q4-6H PRN #30 tab 05/24/20 Rx [Percocet 5/325mg tablet] Prescriptions/Medication Reconciliation: New Ketorolac Tromethamine [Toradol 10mg tablet] 10 mg PO Q6H 5 Days #20 tab Oxycodone HCl/Acetaminophen [Percocet 5/325mg tablet] 1 - 2 tab PO Q4-6H PRN #30 tablet PRN Reason: Severe Pain Continued prenat.vits,shakir,[id number] 1 tab PO DAILY lactobacillus combination no.8 3 billion cell capsule 1 cap PO DAILY - Problem Reconciliation Problems Reviewed?: Yes
== END 2020-05-24 11:30 | disposition home or self-care (01) | DRG 788 ==
LOC: OBOUT 10:47 → OB 10:47
PROVIDERS: Admitting Provider Nurse Practitioner Obstetrics & Gynecology; PCP Family Medicine; Visit Provider Nurse Practitioner Obstetrics & Gynecology
PROC: 10D00Z1 Extraction of Products of Conception, Low, Open Approach (ICD-10-PCS; CPT 59514; principal; 2020-05-22 17:00)
DX: O75.82 Onset (spontaneous) of labor after 37 completed weeks of gestation but before 39 completed weeks gestation, with delivery by (planned) cesarean section (principal); O34.211 Maternal care for low transverse scar from previous cesarean delivery; N85.8 Other specified noninflammatory disorders of uterus; Z3A.38 38 weeks gestation of pregnancy; Z37.0 Single live birth; Z23 Encounter for immunization
CPT/HCPCS: 59514; 36415; 59025; 80048; 80305; 81001; 82800; 84112; 85014; 85018; 85025; 85461; 86328; 86850; 86870; 94761; J2405; J2790